=== PATIENT | female | born 1975 | race African-American/Black ===

== ENCOUNTER 2025-05-08 19:43 | Inpatient (IN) | payer OTHER ==
[~2025-05-08] VITALS: Ht 175.3 cm; Wt 62.6 kg
[2025-05-08] MEDS ORDERED: SULF1TAB47 (20:00)
[2025-05-08] MEDS ORDERED: sulfa (20:00)
[2025-05-08] MEDS ORDERED: PANTOPRAZOLE SODIUM 40 MG VIAL ONE ×2 (20:06→22:16)
[2025-05-08] MEDS ORDERED: ONDANSETRON 4 MG/2 ML VIAL ONE ×2 (20:06→22:16)
[2025-05-08 20:13] LABS: PLATELET COUNT (AUTO) 207 K/uL (179-408); RED BLOOD CELL COUNT(AUTO) 5.07 MIL/uL (3.63-4.92); RED CELL DISTRIBUTION WIDTH 14.2 % (12.3-17.7); WHITE BLOOD COUNT (AUTO) 8.8 K/uL (3.8-11.8)
[2025-05-08] MEDS: ONDANSETRON 4 MG/2 ML VIAL IV ONE (20:16)
[2025-05-08] MEDS: PANTOPRAZOLE SODIUM IV 80 MG in IV DEXTROSE 5% 100 ML IV ONE (20:20)
[2025-05-08 20:22] LABS: CREATININE 0.8 mg/dL (0.6-1.3); SODIUM SERUM 140.0 mmol/L (136-145); UREA NITROGEN, BLOOD 16.0 mg/dL (7-18)
[2025-05-08 20:28] LABS: ASPARTATE AMINOTRANSFERASE 34.0 U/L (15-37); TOTAL PROTEIN, SERUM 8.6 g/dL (6.4-8.2)
[2025-05-08] MEDS: IV NORMAL SALINE 1000 ML BAG IV ONE (20:30)
[2025-05-08] MEDS ORDERED: MORPHINE SULFATE 2 MG/1 ML DISP.SYRIN IV PRN (21:45)
[2025-05-08] MEDS ORDERED: ACETAMINOPHEN 650 MG SUPP.RECT RC PRN (21:45)
[2025-05-08] MEDS: ONDANSETRON 4 MG/2 ML VIAL IV PRN (22:17)
[2025-05-08] MEDS: PANTOPRAZOLE SODIUM 40 MG VIAL IV SCH (22:17)
[2025-05-08 22:59] VITALS: BP 154/88; TEMP 99.1; O2SAT 99
[2025-05-09] MEDS: IV D5 1/2 NS 1000 ML 1,000 ML IV PRN (00:26)
[2025-05-09 04:30] VITALS: BP 136/82; TEMP 98.3; O2SAT 100
[2025-05-09 06:42] LABS: PLATELET COUNT (AUTO) 188 K/uL (179-408); RED BLOOD CELL COUNT(AUTO) 4.64 MIL/uL (3.63-4.92); RED CELL DISTRIBUTION WIDTH 14.0 % (12.3-17.7); WHITE BLOOD COUNT (AUTO) 8.0 K/uL (3.8-11.8)
[2025-05-09 06:54] LABS: ASPARTATE AMINOTRANSFERASE 20.0 U/L (15-37); CREATININE 0.8 mg/dL (0.6-1.3); SODIUM SERUM 141.0 mmol/L (136-145); TOTAL PROTEIN, SERUM 6.9 g/dL (6.4-8.2); UREA NITROGEN, BLOOD 13.0 mg/dL (7-18)
[2025-05-09 07:04] LABS: IRON, SERUM 98.0 ug/dL (50-175)
[2025-05-09 07:32] VITALS: BP 138/88; TEMP 99; O2SAT 99
[2025-05-09 08:35] LABS: LYMPHOCYTES % (MANUAL) 18 % (20-40); MONOCYTES % (MANUAL) 16 % (2-10); NEUTROPHILS % (MANUAL) 66 % (42-75)
[2025-05-09 08:36] LABS: PLATELET ESTIMATE ADEQUATE
[2025-05-09] MEDS ORDERED: AMLO2.5T4 PO (11:05)
[2025-05-09] MEDS ORDERED: VENL150C58 PO (11:05)
[2025-05-09 11:07] VITALS: BP 113/65; TEMP 98.1; O2SAT 94
[2025-05-09 11:09] VITALS: BP 126/73; TEMP 98.1; O2SAT 100
[2025-05-09] MEDS: METOCLOPRAMIDE HCL 10 MG/2 ML VIAL IV PRN (11:31)
[2025-05-09 15:10] VITALS: BP 128/74; TEMP 99.6; O2SAT 97
[2025-05-09 19:35] VITALS: BP 132/93; O2SAT 100
[2025-05-09] MEDS ORDERED: MAG HYDROX/AL HYDROX/SIMETH 30 ML LIQUID UDC PO PRN (20:45)
[2025-05-09] MEDS ORDERED: ZOLPIDEM 5 MG TABLET PO PRN (20:45)
[2025-05-09] MEDS: ACETAMINOPHEN 325 MG TABLET PO PRN (21:11)
[2025-05-10 05:00] VITALS: BP 107/62; TEMP 98.7; O2SAT 97
[2025-05-10] MEDS: PANTOPRAZOLE SODIUM 40 MG TABLET.DR PO SCH (06:25)
[2025-05-10 11:20] VITALS: BP 103/58; TEMP 98.3; O2SAT 98
[2025-05-10] MEDS ORDERED: PROPOFOL 200 MG/20 ML BOTTLE ONE (12:00)
[2025-05-10 12:05] LABS: *BILIRUBIN,URIN 1+ (NEGATIVE); *BLOOD, URINE NEGATIVE (NEGATIVE); *CLARITY,URINE CLEAR (CLEAR); *COLOR,URINE YELLOW (YELLOW); *KETONES,URINE 2+ (NEGATIVE); *PROTEIN,URINE TRACE (NEGATIVE); *UROBILINOGEN,URINE 2.0 E.U./dl (NORMAL); LEUKOCYTE ESTERASE ,URINE NEGATIVE (NEGATIVE); NITRITE, URINE NEGATIVE (NEGATIVE); UGLUCOSE NEGATIVE (NEGATIVE)
[2025-05-10 12:20] LABS: SQUAMOUS EPITHELIAL CELL,UR FEW /HPF (NONE SEEN)
[2025-05-10 13:56] VITALS: BP 130/88
[2025-05-10 15:18] VITALS: BP 125/88; TEMP 98.6; O2SAT 100
[2025-05-10] MEDS ORDERED: PANT40TA49 PO (16:02)
[2025-05-10] MEDS ORDERED: ONDA4TAB5 PO (16:02)
== END 2025-05-10 16:50 | disposition home or self-care (01) | DRG 382 ==
LOC: ER 19:53 → TELE3 21:04 → MEDSURG3 05-09 13:47
PROVIDERS: ADMIT Internal Medicine; ATTEND Internal Medicine
PROC: 0DB68ZX Excision of Stomach, Via Natural or Artificial Opening Endoscopic, Diagnostic (ICD-10-PCS; principal; 2025-05-10 12:30)
DX: K22.11 Ulcer of esophagus with bleeding (principal); R73.9 Hyperglycemia, unspecified; E87.6 Hypokalemia; K29.70 Gastritis, unspecified, without bleeding; F32.A Depression, unspecified; Z79.899 Other long term (current) drug therapy; R03.0 Elevated blood-pressure reading, without diagnosis of hypertension; R53.1 Weakness; R63.4 Abnormal weight loss; Z68.20 Body mass index [BMI] 20.0-20.9, adult; A08.4 Viral intestinal infection, unspecified; Z98.82 Breast implant status; Z90.49 Acquired absence of other specified parts of digestive tract; Z88.2 Allergy status to sulfonamides
CPT/HCPCS: 36415; 70030-TC; 71045; 83550; 83690; 83735; 84100; 85018; 85025; 85730; 86850; 86900; 86901; 87086; 88313-TC; 88342; A4606; A4663; G0378; J2405; J2470; J2765; J3490; J7040